=== PATIENT | male | born 1980 | race African-American/Black ===

== ENCOUNTER 2023-06-28 18:29 | Emergency (ER) | payer BC, SELFPAY ==
[2023-06-28 18:44] VITALS: BP 124/77; PULSE 65; RESP 16; TEMP 36.8; O2SAT 100
--- NOTE | 2023-06-28 19:40 | ED.URI ---
HPI - URI/Sore Throat General Chief Complaint: Upper Respiratory Infection Stated Complaint: Sinus Source: patient, family and RN notes reviewed History of Present Illness HPI Narrative: 42 yo M presents to urgent care with visitor at side. Pt states he has been having bilateral maxillary soreness for the last few days. Pt states he has been getting over a cold this past week. Pt reports being congested and having a slight cough for the last 5 days but is no longer congested and the cough is much better. Pt states it's just the soreness in his sinuses. Denies any POOL, sore throat, ear pain, fevers, chills, chest pain, SOB, vomiting, or diarrhea. Pt has taken Mucinex this week. Related Data Allergies Allergy/AdvReac Type Severity Reaction Status Date / Time No Known Allergies Allergy Verified 06/28/23 18:50 Review of Systems Review of Systems: Pertinent positives and pertinent negatives per HPI. PMFSH Comments At the time of my signature, I reviewed and agree with the nursing past medical, surgical, social, and family history. There is no relevant family history pertinent to the patient complaint. Exam Narrative: GENERAL: This is a well-nourished, well-developed patient, in no apparent distress. HEAD: normocephalic, atraumatic. EYES: Sclera clear/white. Vision is grossly intact. EARS: External ears normal, auditory canals clear and without drainage, TMs normal without perforation. Hearing grossly intact. NOSE: External nose normal with no obvious nasal discharge, nares without redness, no rhinorrhea. THROAT: Mucous membranes moist, posterior pharynx clear. NECK: Neck supple, non-tender without lymphadenopathy, masses or thyromegaly. CARDIOVASCULAR: Regular rate and rhythm without murmurs, gallops, or rubs. RESPIRATORY: Clear to auscultation. Breath sounds equal bilaterally. No wheezes, rales, or rhonchi. SKIN: warm, intact with no suspicious lesions or rash, good texture and turgor. NEURO: awake, alert, and oriented to person, place and time. There were no obvious focal neurologic abnormalities. EXTREMITIES: No clubbing, cyanosis, or edema. No joint tenderness, effusion, or edema noted. BACK: Nontender without deformity or crepitus. No flank tenderness. Course Course Level of Care: Express Care Visit Vital Signs Vital signs: Vital Signs Temperature 98.3 F 06/28/23 18:44 Pulse Rate 65 06/28/23 18:44 Respiratory Rate 16 06/28/23 18:44 Blood Pressure 124/77 06/28/23 18:44 Pulse Oximetry 100 06/28/23 18:44 Oxygen Delivery Room Air 06/28/23 18:44 Temperature 98.3 F 06/28/23 18:44 Pulse Rate 65 06/28/23 18:44 Respiratory Rate 16 06/28/23 18:44 Blood Pressure 124/77 06/28/23 18:44 Pulse Oximetry 100 06/28/23 18:44 Oxygen Delivery Room Air 06/28/23 18:44 reviewed MDM - URI/Sore Throat MDM Narrative Medical decision making narrative: Viral illness may last between 7-12days; antibiotic is NOT recommended at this time. Recommend antihistamine such as Benadryl at night time and Claritin/Zyrtec/Amy during the day. Increase your Vitamin C intake. Steam from hot showers help with congestion. Also, recommend symptomatic treatment includes: rest, fluids, increase humidity of the air at home with a humidifier in the bedroom. Recommend Acetaminophen or nonsteroidal anti-inflammatory agents(NSAIDs) as directed in the bottle to reduce fever and/pain/headache. Avoid smoking/second-hand smoke. Limit visits to areas with large crowds. Frequent hand washing or hand fisher trammel net is one of the best ways to prevent spread of infection. Differential Diagnosis Differential diagnosis: Likely upper respiratory infection, sinusitis and viral infection Critical Care Time Critical Care Time Critical Care Time: No Discharge Plan Discharge Clinical Impression: Upper respiratory infection Qualifiers: URI type: unspecified viral URI Qualified Code(s): J06.9 - Acute upper respira
== END 2023-06-28 19:50 | disposition home or self-care (01) ==
PROVIDERS: Emergency Provider Nurse Practitioner Family; PCP Student in an Organized Health Care Education/Training Program
DX: J06.9 Acute upper respiratory infection, unspecified (principal)
CPT/HCPCS: 99203; G0463